=== PATIENT | female | born 1990 | race African-American/Black ===

== ENCOUNTER 2016-12-01 15:37 | Emergency (ER) | payer OTHER ==
[~2016-12-01] VITALS: Ht 172.7 cm; Wt 159.0 kg
[2016-12-01] MEDS ORDERED: ACETAMINOPHEN 325MG TABLET PO ONE (16:15)
[2016-12-01 16:36] LABS: CHLORIDE 104 mEq/L (98-107)
[2016-12-01 16:42] LABS: CARBON DIOXIDE 25 mEq/L (21-32)
[2016-12-01 16:43] LABS: BASOPHILS % 0.5 % (0.0-2.0); EOSINOPHILS % 3.1 % (0.0-5.0); HEMATOCRIT. 36.9 % (36.0-48.0); HEMOGLOBIN. 12.1 g/dL (12.0-16.0); LYMPHOCYTES % 26.5 % (20.0-50.0); MEAN CORPUSCULAR HEMOGLOBIN 27.9 pg (28.0-32.0); MEAN CORPUSCULAR VOLUME 85.2 fL (81.0-99.0); MEAN PLATELET VOLUME 9.7 fl (7.4-10.4); MONOCYTES % 7.9 % (2.0-8.0); PLATELET 191 x1000/uL (130-400); RED BLOOD CELL COUNT 4.33 mill/uL (4.2-5.4); RED CELL DISTRIBUTION WIDTH 15.1 % (11.6-14.6)
[2016-12-01 16:46] LABS: B-HCG QUANTITATIVE 652 mIU/mL (<3)
[2016-12-01 19:21] VITALS: BP 124/73
== END 2016-12-01 19:23 | disposition home or self-care (01) ==
LOC: ER 16:24
DX: O20.0 Threatened abortion (principal); Z3A.08 8 weeks gestation of pregnancy
CPT/HCPCS: 36415; 76801; 80048; 84702; 85025; 86850; 86900; 99285

== ENCOUNTER 2016-12-04 02:07 | Emergency (ER) | payer OTHER ==
[~2016-12-04] VITALS: Ht 172.7 cm; Wt 108.8 kg
[2016-12-04 02:12] VITALS: BP 126/75
== END 2016-12-04 08:07 | disposition left against medical advice (07) ==
LOC: ER 07:26
DX: N93.9 Abnormal uterine and vaginal bleeding, unspecified (principal); Z53.21 Procedure and treatment not carried out due to patient leaving prior to being seen by health care provider
CPT/HCPCS: 81025

== ENCOUNTER 2016-12-04 17:11 | Emergency (ER) | payer OTHER ==
[~2016-12-04] VITALS: Ht 172.7 cm; Wt 108.0 kg
[2016-12-04 17:36] VITALS: BP 122/60
== END 2016-12-04 23:00 | disposition left against medical advice (07) ==
LOC: ER 17:11
DX: N93.9 Abnormal uterine and vaginal bleeding, unspecified (principal); Z53.21 Procedure and treatment not carried out due to patient leaving prior to being seen by health care provider